=== PATIENT | male | born 1945 | race African-American/Black ===

== ENCOUNTER 2021-04-18 12:43 | Inpatient (IN) | payer MEDICARE, OTHER ==
[~2021-04-18] VITALS: Ht 177.8 cm; Wt 89.9 kg
[~2021-04-18 12:43] MED LIST: ASPIRIN E.C. 8181 MG PO; COREG 6.256.25 MG/TA PO; DOXYCYCLINE 10100 MG PO; GLUCOPHAGE500 MG/TAB PO; KLOR-CON 1010 MEQ PO; LANOXIN 0.120.125 MG PO; LASIX 20MG TABL20 MG PO; LIPITOR 40MG TA40 MG PO; METAMUCIL3.4 GM/DOS PO; MINIPRESS 1M1 MG/CAP PO; NAPROSYN500 MG PO; PLAVIX 75MG TAB75 MG PO; PRILOTC; PROTONIX 40MG T40 MG PO; SINGULAIR 110 MG/TAB PO; TIAZAC240 MG PO; VENTOLIN0.09 MG IH; VYTORIN 10 MG-21 TAB PO
[2021-04-18 13:11] LABS: BASO # 0.1 (0.0-0.2); BASO % 0.7 % (0.0-2.0); EOS # 0.1 (0.0-0.7); EOS % 0.9 % (0-4.0); GRAN # 5.6 (1.4-6.5); GRAN % 66.3 % (42.2-75.2); HEMATOCRIT 39.6 % (42.0-52.0); HEMOGLOBIN 13.2 g/dl (13.5-18.0); LYMPH # 1.9 (1.2-3.4); LYMPH % 21.9 % (20.0-51.0); MEAN CELL VOLUME 96 fl (80.0-100.0); MEAN CORPUSCULAR HEMOGLOBIN 32 pg (27.0-31.0); MEAN CORPUSCULAR HGB CONC 33 g/dl (33.0-37.0); MEAN PLATELET VOLUME 9.4 fl (7.4-10.4); MONO # 0.8 (0.1-0.6); MONO % 9.5 % (1.7-9.3); PLATELET COUNT 283 K/mm3 (130-400); RED BLOOD COUNT 4.13 M/mm3 (4.20-5.60); REDCELL DISTRIBUTION WIDTH-CV 13.9 % (11.5-14.5)
[2021-04-18 13:20] LABS: ALANINE AMINOTRANSFERASE 23 U/L (4-49); ALBUMIN 4.4 gm/dL (3.5-5.0); ALKALINE PHOSPHATASE 107 U/L (50-136); ANION GAP 10 mmol/L (7-16); AST,SGOT 28 U/L (15-37); BILIRUBIN,TOTAL 0.5 mg/dL (0.0-1.0); BLOOD UREA NITROGEN 19 mg/dL (9-20); CALCIUM 9.7 mg/dL (8.4-10.2); CARBON DIOXIDE 29 mmol/L (22-30); CHLORIDE 101 mmol/L (98-107); CREATININE, serum 0.93 (0.66-1.25); GLUCOSE 154 mg/dL (74-106); POTASSIUM 4.3 mmol/L (3.4-5.0); SODIUM 140 mmol/L (137-145); TOTAL PROTEIN 7.4 gm/dL (6.4-8.2)
[2021-04-18 13:35] LABS: TROPONIN-I < 0.012 ng/mL (0.000-0.035)
[2021-04-18 17:49] VITALS: BP 161/92; PULSE 72; TEMP 97.7
--- NOTE | 2021-04-18 19:01 | NUR ---
Admission assessment completed, alert/oriented, vital signs stable however B/P do run high and physician is aware, heart irregular/ a.fib on tele with rate control, distal pulses palpable, lungs CTA/ no resp.difficulty noted at rest/ does get SOA with exertion, serial Troponin negative thus far, Cardiology has seen patient and plans for heart cath 04/19, patient has AHA tonight and will be NPO after midnight, meds/allergies/pharmacy reviewed, he denies other needs at this time
--- NOTE | 2021-04-18 19:42 | NUR ---
Initial shift assessment done- denies any chest pain or SOB at this time- requesting a snack tonight otherwise no requests, pleasant, alert/oriented. Will be NPo after MN for heart cath tomorrow.
[2021-04-18 19:53] VITALS: BP 155/82; PULSE 64; TEMP 98.8
--- NOTE | 2021-04-18 20:30 | NUR ---
Noticed patient is in afib per Tele, tele called to confirmed- states he has been in Afib since he was put on Tele at 4pm, will get a 12 lead EKG to comfirm-- no know hx of afib per chart
--- NOTE | 2021-04-18 22:00 | NUR ---
Called Esmer SILVA in regards to afib on 12 lead-- sshe will look at chart and write orders
--- NOTE | 2021-04-18 23:05 | NUR ---
Talked with patient before starting the heparin drip-- patient states he has had a history of afib "for years" and he is not on coumadin because it caused a GI bleed that he was hospitalized for--- also mixing technician called, patient is in sinus at this time but does go back and forth betwwen afib,, called Esmer with this info and order to DC heaprin drip and give Lovenox tonight-
[2021-04-18 23:16] LABS: PROTHROMBIN TIME 11.3 SECONDS (9.7-12.8)
[2021-04-18 23:18] LABS: PARTIAL THROMBOPLASTIN TIME 30.2 SECONDS (26.0-37.0)
[2021-04-18 23:31] VITALS: BP 132/82; PULSE 84; TEMP 99
[2021-04-19] VITALS (243 sets, daily range): BP systolic 121–169; BP diastolic 69–99; PULSE 61–94; TEMP 98–98.5; O2SAT 52–100
--- NOTE | 2021-04-19 06:23 | NUR ---
Quiet night- did sleep well, VSS, Has been NPO since MN, Consent signed for heart cath, Tele on, has been in afib all shift-rate controlled 70-80
[2021-04-19 06:52] LABS: HEMATOCRIT 37.7 % (42.0-52.0); HEMOGLOBIN 12.4 g/dl (13.5-18.0); MEAN CELL VOLUME 97 fl (80.0-100.0); MEAN CORPUSCULAR HEMOGLOBIN 32 pg (27.0-31.0); MEAN CORPUSCULAR HGB CONC 33 g/dl (33.0-37.0); MEAN PLATELET VOLUME 9.8 fl (7.4-10.4); PLATELET COUNT 272 K/mm3 (130-400); RED BLOOD COUNT 3.89 M/mm3 (4.20-5.60); REDCELL DISTRIBUTION WIDTH-CV 13.7 % (11.5-14.5)
[2021-04-19 07:09] LABS: PROTHROMBIN TIME 11.1 SECONDS (9.7-12.8)
[2021-04-19 07:11] LABS: PARTIAL THROMBOPLASTIN TIME 34.5 SECONDS (26.0-37.0)
[2021-04-19 07:23] LABS: CALCIUM 9.1 mg/dL (8.4-10.2); CREATININE, serum 0.84 (0.66-1.25); POTASSIUM 4.1 mmol/L (3.4-5.0)
--- NOTE | 2021-04-19 08:10 | NUR ---
Shift assessment complete. Pt A&Ox4. Heart rhythm irregular, rate controlled in 80s. Lungs CTA. Denies chest pain, SOA, dizziness. at bedside discussing heart cath w/pt. Pt denies needs at this time. Continuing to monitor.
--- NOTE | 2021-04-19 08:25 | NUR ---
PT OFF UNIT FOR HEART CATH AT THIS TIME.
--- NOTE | 2021-04-19 08:53 | NUR ---
SEE MERGE DOCUMENTATION FOR MEDICATION ADMINISTRATION TIMES AND INTRA/POST PROCEDURE SEDATION ASSESSMENTS.
--- NOTE | 2021-04-19 10:00 | NUR ---
Pt back in room following heart cath. Right femoral access site w/angio seal, no s/s complication. Pt denies pain. Vitals stable and post-op checks in place.
--- NOTE | 2021-04-19 10:34 | NUR ---
SW met with patient at bedside to determine d/c needs. Patient states he is fully independent with no DME's or home 02. Patient is and they reside in [place]. Patient states his established DPOA is his , Renata and this is in writing. PCP is Dr Hank Medina. *D/C home pending tests and evals. SW will continue to follow
[2021-04-19 11:42] LABS: ARTERIAL BLD GAS O2 SATURATION 95.6 % (92-100); ARTERIAL BLD GAS TCO2 CT 30.9; ARTERIAL BLOOD GAS BASE EXCESS 3.9 (-2-2); ARTERIAL BLOOD GAS HCO3 29.5 meq/L (22-26); ARTERIAL BLOOD GAS PCO2 48.3 mmHg (35-45); ARTERIAL BLOOD GAS PO2 86.4 mmHg (80-100)
--- NOTE | 2021-04-19 11:45 | NUR ---
1100 Pt called stating he was having chest pain. Went to room and administered 1 mg morphine IV per orders. Pt stating pain is 9/10 and it is difficult to breathe. HOB elevated to 30 degrees but unable to go higher due to flat time from cath. Vitals stable, BP 136/82, HR 88, O2 sats 96% RA, RR 20. Right femoral access site w/o s/s complication. Ashley SILVA notified and stat EKG ordered. 1108 RT at bedside doing EKG, Ashley SILVA at bedside assessing pt. Nitro SL tab given per orders. EKG showed Afib, rate 60s. notified and troponin ordered. 1112 Pt continuing to report severe chest pain and SOA, Respirations 24/minute, pt began complaining of dizziness and feeling hot flashes. Blankets stripped and room temp turned down. Ashley SILVA notified again and en route to bedside. ABGs and stat chest xray ordered. 1115 Pt struggling to keep eyes open. BPs now 70s/40s. Cat call called at this time and medical charge notified. 1120 Ashley SILVA, , medical charge Libra, , and rapid response team at bedside. 500 ml fluid bolus started per orders. taking pt back down for heart cath. 1130 Pt off unit for emergent heart cath and report called to FLOOR PRESS OPERATOR taking pt following procedure.
--- NOTE | 2021-04-19 12:45 | NUR ---
First visit from the skein straightener. No needs right now.
[2021-04-20] VITALS (413 sets, daily range): BP systolic 109–153; BP diastolic 60–97; PULSE 61–90; TEMP 97.8–98.7; O2SAT 49–100
[2021-04-20 05:58] LABS: HEMOGLOBIN 10.9 g/dl (13.5-18.0); MEAN CELL VOLUME 96 fl (80.0-100.0); MEAN CORPUSCULAR HEMOGLOBIN 32 pg (27.0-31.0); MEAN CORPUSCULAR HGB CONC 34 g/dl (33.0-37.0); MEAN PLATELET VOLUME 9.8 fl (7.4-10.4); PLATELET COUNT 260 K/mm3 (130-400); RED BLOOD COUNT 3.38 M/mm3 (4.20-5.60)
[2021-04-20 06:01] LABS: HEMATOCRIT 32.5 % (42.0-52.0)
--- NOTE | 2021-04-20 07:01 | NUR ---
PATIENT DID WELL OVERNIGHT, BUT DID REPORT PAIN IN HIS LEFT UPPER SHOULDER/BACK AND WAS GIVEN TWO DOSES OF PERCOCET WHICH ALLEVIATED HIS PAIN. HIS DRESSING WAS CHANGED THIS AM THERE WAS A SMALL AMOUNT OF BLOOD ON THE GAUZE UNDERNEATH THE TEGADERM ON THE LEFT FEMORAL SITE. THE RIGHT FEMORAL SITE HAS SOME BRUISING BUT IS SOFT AND NO HEMATOMA IS PRESENT. PATIENT CURRENTLY RESTING COMFORTABLY IN BED.
--- NOTE | 2021-04-20 07:30 | NUR ---
Report received from DOMINIC Gutierrez. Patient lying in bed. Arterial and venous sheath in place in left groin. Patient has c/o left shoulder pain on back side from lying in bed. He states it is more musculoskeletal pain than chest pain. VS WNL. Breakfast ordered for him. lab engineer should be by this morning to pull sheath.
[2021-04-20 09:02] LABS: ALBUMIN 3.6 gm/dL (3.5-5.0); BILIRUBIN,TOTAL 0.7 mg/dL (0.0-1.0); CALCIUM 8.5 mg/dL (8.4-10.2); CREATININE, serum 0.78 (0.66-1.25); POTASSIUM 3.7 mmol/L (3.4-5.0); TOTAL PROTEIN 6.4 gm/dL (6.4-8.2)
--- NOTE | 2021-04-20 10:50 | NUR ---
Cody from union laborer here to remove femoral sheaths.
--- NOTE | 2021-04-20 11:15 | NUR ---
Flat time started for this patient. groin site is clean, dry, soft. will proceed with regular groin checks as if he were post catheterization.
--- NOTE | 2021-04-20 15:40 | NUR ---
Patient finished with flat time. he is sitting up in bed with no complaints. groin site continues to be stable. will continue to monitor
--- NOTE | 2021-04-20 17:36 | NUR ---
PATIENT TRANSFERRED TO ROOM 318 AFTER GIVING REPORT TO IRON. PATIENT RECENTLY C/O PAIN AND SWELLING TO RIGHT KNEE. ICE APPLIED.
--- NOTE | 2021-04-20 23:47 | NUR ---
PT RESTING IN RECLINER. EVENING MEDICATIONS GIVEN. COMPLAINING OF PAIN AND SWELLING IN R KNEE, WHICH IS VERY OBVIOUSLY SWOLLEN. PT REPORTS A HISTORY OF THIS. USING ICE AND HEAT TO ALLEVIATE. DENIES ANY NEEDS. WILL CONTINUE TO MONIOR.
[2021-04-21 00:28] VITALS: BP 118/66; PULSE 82; TEMP 97.9
[2021-04-21 04:35] VITALS: BP 122/73; PULSE 86; TEMP 98.1
[2021-04-21 06:58] LABS: HEMOGLOBIN 10.6 g/dl (13.5-18.0); MEAN CELL VOLUME 96 fl (80.0-100.0); MEAN CORPUSCULAR HEMOGLOBIN 32 pg (27.0-31.0); MEAN CORPUSCULAR HGB CONC 33 g/dl (33.0-37.0); MEAN PLATELET VOLUME 9.9 fl (7.4-10.4); PLATELET COUNT 249 K/mm3 (130-400); RED BLOOD COUNT 3.33 M/mm3 (4.20-5.60); REDCELL DISTRIBUTION WIDTH-CV 14.2 % (11.5-14.5)
[2021-04-21 07:00] LABS: HEMATOCRIT 32.1 % (42.0-52.0)
[2021-04-21 07:32] LABS: CALCIUM 9.5 mg/dL (8.4-10.2); CREATININE, serum 1.17 mg/dL (0.72-1.25); MAGNESIUM 1.7 mg/dL (1.6-2.6); POTASSIUM 3.3 mmol/L (3.5-4.5)
[2021-04-21 07:59] VITALS: BP 120/71; PULSE 89; TEMP 98.2
[2021-04-21 12:30] VITALS: BP 121/68; PULSE 85; TEMP 98
[2021-04-21] MEDS ORDERED: RANEXA 500MG T500 MG PO (15:58)
[2021-04-21 16:06] VITALS: BP 108/54; PULSE 59; TEMP 98.4
--- NOTE | 2021-04-21 17:03 | NUR ---
PT DISCHARGE HOME OMN STABLE CONDITION. D/C INSTRUCTIONS, MEDICATIONS AND FOLLOW REVWIED WITH PT QUESTIONS AND CONCERNS ADDRESSED. PT ESCORTED TO ER EXIT BY THIS NURSE VIA WC. ALL PERSONAL BELONGINGS SENT WITH PT
== END 2021-04-21 16:50 | disposition home or self-care (01) | DRG 246 ==
LOC: COL.ER 12:43 → MEDICAL 15:49 → ICU 04-19 11:56 → MEDICAL 04-20 19:27
PROVIDERS: Internal Medicine; Internal Medicine Cardiovascular Disease; Nurse Practitioner; Physician Assistant; Student in an Organized Health Care Education/Training Program; ADMIT Family Medicine
PROC: 027034Z Dilation of Coronary Artery, One Artery with Drug-eluting Intraluminal Device, Percutaneous Approach (ICD-10-PCS; principal; 2021-04-19)
PROC: B2111ZZ Fluoroscopy of Multiple Coronary Arteries using Low Osmolar Contrast (ICD-10-PCS; 2021-04-19)
DX: I25.110 Atherosclerotic heart disease of native coronary artery with unstable angina pectoris (principal); I21.4 Non-ST elevation (NSTEMI) myocardial infarction; G89.29 Other chronic pain; K21.9 Gastro-esophageal reflux disease without esophagitis; E78.5 Hyperlipidemia, unspecified; E11.9 Type 2 diabetes mellitus without complications; E87.6 Hypokalemia; E83.42 Hypomagnesemia; I95.9 Hypotension, unspecified; I48.91 Unspecified atrial fibrillation; Z20.822 Contact with and (suspected) exposure to COVID-19; E66.9 Obesity, unspecified; Z87.01 Personal history of pneumonia (recurrent); I25.2 Old myocardial infarction; Z79.82 Long term (current) use of aspirin; Z87.891 Personal history of nicotine dependence
CPT/HCPCS: 99232-AI; 99239; A4314; C1725; C1760; C1769; C1874; C1887; C1894; C9600; G0378; J1644; J1650; J1815; J2250; J2270; J3010; J3475; J3480; J7040; Q9967

== ENCOUNTER 2021-04-23 14:53 | Emergency (ER) | payer MEDICARE, OTHER ==
[~2021-04-23] VITALS: Ht 177.8 cm; Wt 87.7 kg
[~2021-04-23 14:53] MED LIST changes: +RANEXA 500MG T500 MG PO
[2021-04-23 14:55] VITALS: TEMP 98.4
[2021-04-23 15:25] LABS: BASO % 0.4 % (0.0-2.0); EOS # 0.1 (0.0-0.7); GRAN # 8.5 (1.4-6.5); GRAN % 80.4 % (42.2-75.2); LYMPH # 0.9 (1.2-3.4); LYMPH % 8.6 % (20.0-51.0); MEAN CELL VOLUME 97 fl (80.0-100.0); MEAN CORPUSCULAR HGB CONC 33 g/dl (33.0-37.0); MONO # 0.9 (0.1-0.6); MONO % 8.6 % (1.7-9.3); PLATELET COUNT 292 K/mm3 (130-400); RED BLOOD COUNT 2.98 M/mm3 (4.20-5.60); REDCELL DISTRIBUTION WIDTH-CV 14.3 % (11.5-14.5)
[2021-04-23 15:29] LABS: HEMATOCRIT 28.9 % (42.0-52.0); HEMOGLOBIN 9.6 g/dl (13.5-18.0); MEAN CORPUSCULAR HEMOGLOBIN 32 pg (27.0-31.0)
[2021-04-23 15:36] LABS: ALBUMIN 3.1 gm/dL (3.4-4.8); BILIRUBIN,TOTAL 0.7 mg/dL (0.2-1.2); CALCIUM 9.4 mg/dL (8.4-10.2); CREATININE, serum 1.53 mg/dL (0.72-1.25); POTASSIUM 4.6 mmol/L (3.5-4.5); TOTAL PROTEIN 7.1 gm/dL (6.2-8.1)
[2021-04-23 15:40] VITALS: BP 104/59; PULSE 64
[2021-04-23 15:53] LABS: TROPONIN-I 0.081 ng/mL (0.00-0.033)
== END 2021-04-23 15:58 | disposition short-term general hospital (02) ==
LOC: COL.ER 14:53
PROVIDERS: Emergency Medicine
DX: I21.3 ST elevation (STEMI) myocardial infarction of unspecified site (principal); I31.3 Pericardial effusion (noninflammatory); I25.10 Atherosclerotic heart disease of native coronary artery without angina pectoris; I10 Essential (primary) hypertension; E78.5 Hyperlipidemia, unspecified; E11.9 Type 2 diabetes mellitus without complications; I25.2 Old myocardial infarction; Z79.899 Other long term (current) drug therapy; Z79.82 Long term (current) use of aspirin; Z79.84 Long term (current) use of oral hypoglycemic drugs
CPT/HCPCS: J2270; J2405; J7030